=== PATIENT | male | born 1955 | race Hispanic/Latino ===

== ENCOUNTER → 2023-04-10 | Outpatient (CLI) | payer OTHER | END | disposition home or self-care (01) | LOC: RAH 07:30 | PROVIDERS: ATTEND Internal Medicine Rheumatology | DX: M47.816 Spondylosis without myelopathy or radiculopathy, lumbar region (principal); M48.061 Spinal stenosis, lumbar region without neurogenic claudication; M51.36 Other intervertebral disc degeneration, lumbar region; M54.50 Low back pain, unspecified | CPT/HCPCS: 72148 ==

== ENCOUNTER → 2023-09-18 | Outpatient (CLI) | payer OTHER | END | disposition home or self-care (01) | LOC: RAH 14:03 | PROVIDERS: ATTEND Internal Medicine | DX: Z13.6 Encounter for screening for cardiovascular disorders (principal) | CPT/HCPCS: 75571 ==

== ENCOUNTER → 2024-06-17 | Outpatient (CLI) | payer OTHER ==
--- NOTE | 2024-06-17 13:57 | HMCIMG ---
THORACIC SPINE RADIOGRAPHS - 3 VIEWS INDICATION: Radiculopathy, and thoracic region COMPARISON: None FINDINGS: AP lateral and swimmer's views No acute fracture or subluxation identified. Vertebral body heights and disc spaces are well-maintained. Multilevel mild anterior endplate osteophytic spurring. Multilevel mild facet disease. Mild calcific plaque is present along the aortic arch jefferson. IMPRESSION: Mild thoracic degenerative joint disease without superimposed acute component.
== END | disposition home or self-care (01) ==
LOC: RAH 12:24
PROVIDERS: ATTEND Anesthesiology
DX: M47.24 Other spondylosis with radiculopathy, thoracic region (principal); M46.04 Spinal enthesopathy, thoracic region; M25.78 Osteophyte, vertebrae; I70.0 Atherosclerosis of aorta
CPT/HCPCS: 72072